=== PATIENT | male | born 1970 | race American Indian/Alaskan Native ===

== ENCOUNTER 2017-01-29 14:15 | Emergency (ER) | payer SELFPAY ==
--- NOTE | 2017-01-29 14:30 | Event Note ---
Date: 01/29/17 Nurse Zoey Corona informs me that the patient would like to sign out AGAINST MEDICAL ADVICE after being brought to the hospital by ambulance. Patient may have had a seizure today. The patient is alert and oriented 3, clinically sober, has a GCS of 15, walks with a steady gait, and does not have impaired his decision-making capacity. Risks of leaving AGAINST MEDICAL ADVICE, including , disability, paralysis, loss of quality of life were discussed with the patient, who verbalized understanding, and was able to articulate these risks in his own words. Patient informed not to drive her car or operate motor vehicles for the next 6 months and was cleared by either primary care or neurology. Patient indicates he does not require a refill on his AED medications. Entire conversation witnessed by nurses Duong Hernandez and Jay lerner
[2017-01-29 15:35] VITALS: BP 160/97
== END 2017-01-29 14:30 | disposition left against medical advice (07) ==
LOC: ED 14:15
DX: Z53.21 Procedure and treatment not carried out due to patient leaving prior to being seen by health care provider (principal)